=== PATIENT | male | born 2000 | race African-American/Black ===

== ENCOUNTER 2023-10-09 23:19 | Emergency (ER) | payer OTHER ==
[~2023-10-09] VITALS: Ht 188 cm; Wt 118.1 kg
[2023-10-10] MEDS: LIDOCAINE 2% MDV 20ML VIAL SC ONE (00:20)
[2023-10-10 01:20] VITALS: BP 170/70; TEMP 97.5; O2SAT 100
== END 2023-10-10 01:22 | disposition home or self-care (01) ==
LOC: M ED 23:19
DX: S61.212A Laceration without foreign body of right middle finger without damage to nail, initial encounter (principal); S61.214A Laceration without foreign body of right ring finger without damage to nail, initial encounter; W23.1XXA Caught, crushed, jammed, or pinched between stationary objects, initial encounter; F17.200 Nicotine dependence, unspecified, uncomplicated; F10.10 Alcohol abuse, uncomplicated; Y92.9 Unspecified place or not applicable; Y93.9 Activity, unspecified; Y99.9 Unspecified external cause status